=== PATIENT | female | born 1960 | race Caucasian/White ===

== ENCOUNTER 2018-07-27 08:14 | Day surgery (SDC) | payer BC ==
[~2018-07-27 08:14] MED LIST: Acetaminophen TAB* 325 MG PO ONE; Buffered Lidocaine 1% SYRIN* 1 ML/SYRINGE INTRADERM ONE; Dexamethasone IV* 4 MG/ML 1 ML (4 MG) IV SLOW PU ONE; Famotidine IV* 10 MG/ML 2 ML (20 mg) IV SLOW PU ONE; Gabapentin CAP(*) 300 MG PO ONE; Lactated Ringers 1000 ML Bag* 1,000 ML IV SCH
[2018-07-27] MEDS ORDERED: Dexamethasone IV* 4 MG/ML 1 ML (4 MG) ONE (08:38)
[2018-07-27] MEDS ORDERED: Gabapentin CAP(*) 300 MG ONE (08:38)
[2018-07-27] MEDS ORDERED: Acetaminophen TAB* 325 MG ONE (08:39)
[2018-07-27] MEDS ORDERED: Famotidine IV* 10 MG/ML 2 ML (20 mg) ONE (08:39)
[2018-07-27] MEDS ORDERED: Clindamycin 900 MG/D5W BAG(*) 900 MG/50 ML BAG IVPB ONE (08:39)
[2018-07-27] MEDS ORDERED: Buffered Lidocaine 1% SYRIN* 1 ML/SYRINGE INTRADERM ONE (08:39)
[2018-07-27] MEDS ORDERED: Ondansetron INJ* 2 MG/ML VIAL ONE (09:09)
[2018-07-27] MEDS ORDERED: fentaNYL* 50 MCG/ML 2 ML VIAL (100 MCG VIAL) ONE ×2 (09:09→10:17)
[2018-07-27] MEDS ORDERED: Propofol* 10 MG/ML 20 ML BTL ONE ×2 (09:09→10:24)
[2018-07-27] MEDS ORDERED: Midazolam* 1 MG/ML 5 ML VIAL (5 MG) ONE (09:09)
[2018-07-27] MEDS ORDERED: Ketorolac INJ* 30 MG/ML 1 ML VIAL ONE (09:09)
[2018-07-27] MEDS ORDERED: Lidocaine 2% PF * 5 ML VIAL ONE (09:57)
[2018-07-27] MEDS ORDERED: Bupivacaine 0.25% SDV PF* 10 ML VIAL INJ ONE (10:19)
[2018-07-27] MEDS ORDERED: KETAMINE HCL* 50 MG/ML 10 ML VIAL ONE (10:19)
[2018-07-27] MEDS ORDERED: Naloxone* 0.4 MG/ML 1 ML VIAL IV PRN (10:31)
[2018-07-27] MEDS ORDERED: HYDROmorphone INJ1* 1 MG/ML SYRINGE IV PRN (10:31)
[2018-07-27] MEDS ORDERED: Ondansetron INJ* 2 MG/ML VIAL IV PRN (10:31)
[2018-07-27] MEDS ORDERED: oxyCODONE/Acetamin 5/325 MG* TAB PO PRN (10:31)
[2018-07-27] MEDS ORDERED: DiMENhydriNATE IV* 50 MG/ML VIAL IV PUSH PRN (10:31)
[2018-07-27] MEDS ORDERED: fentaNYL* 50 MCG/ML 2 ML VIAL (100 MCG VIAL) IV PRN (10:31)
[2018-07-27 12:00] VITALS: BP 120/69
[2018-07-27] MEDS ORDERED: oxyCODONE/Acetamin 5/325 MG* TAB ONE (12:02)
--- NOTE | 2018-07-27 14:46 | OP ---
Operative Report - Blank - Operative Report Date of Operation: 07/27/18 Note: PATIENT: Xiomara Lopez DATE OF : 1960 DATE OF SURGERY: 07/27/2018 SURGEON: Antoine Pena MD [employer] ST[employer]ER: JOSELINE Franco, whos assistance was necessary for positioning, retraction, help with instrumentation, and closure. ANESTHESIOLOGIST: Dr. Alexander PREOPERATIVE DIAGNOSIS: Left foot hallux valgus deformity and 2nd hammertoe POSTOPERATIVE DIAGNOSIS: Left foot hallux valgus deformity and 2nd hammertoe OPERATION: 1. Left foot hallux valgus correction with distal soft tissue procedure, medial eminence resection, and proximal suture button fixation. 2. Left 2nd hammertoe correction with PIP resection arthroplasty ANESTHESIA: MAC IMPLANTS: Arthrex mini tightrope. TOURNIQUET TIME: Less than one hour with a well-padded thigh tourniquet at 250mmHg SPECIMENS: None ESTIMATED BLOOD LOSS: Minimal COMPLICATIONS: none STATUS: Stable from the operating room to the recovery room and then home. INDICATIONS FOR PROCEDURE: Xiomara has had persistently painful bunion and hammertoe. Both operative and non -operative treatment alternatives were reviewed. Further, the nature and risks of surgery were reviewed in careful detail, in the office as well as the pre- operative holding area. Our discussions regarding the risks of surgery included , but were not limited to, infection, wound problems, nerve injury, neuroma, RSD , persistent symptoms, blood clot, recurrence of the hallux valgus deformity, hallux varus deformity, imperfect reduction, metatarsal fracture, recurrent hammertoe, floating toe, need for further surgery, failure of the surgery, and even the remote chance of catastrophic complication, including loss of toe or limb. DESCRIPTION OF PROCEDURE: The patient was seen in the preoperative holding unit and informed written consent was obtained. The appropriate extremity was marked. The patient was then brought to the operating room and carefully positioned on the operating room table. Anesthesia was induced. All bony prominences were padded with great care. A chlorhexidine based pre-scrub was performed followed by a chloraprep prep and drape in standard sterile fashion. A surgical safety pause was then conducted in which we confirmed the appropriate patient, extremity, planned procedure, availability of equipment, indication and administration of prophylactic antibiotics, and DVT prophylaxis in the form of a compression boot on the non-surgical extremity. I began with Esmarch exsanguination of the limb and inflation of the tourniquet. An approximately 3cm longitudinal dorsal incision was made in the first webspace. Blunt dissection was utilized to expose the structures of the lateral first MTP joint. With a scalpel I then sharply released the adductor tendon, intermetatarsal ligament, metatarsal-sesamoid ligament, and lateral joint capsule. After this, the hallux came readily over into varus with minimal pressure. I then made an approximately 3cm longitudinal incision over the medial aspect of the first MTP joint, centered at the first MTP joint. Dissection was carried down to the capsular layer. The dorsomedial cutaneous nerve was protected throughout. The capsule was opened in line with the skin incision. I then used an oscillating saw to perform an exostectomy of the medial eminence of the first MTP head flush with the metaphyseal flare proximally. I started the osteotomy 1mm medial to the sagittal sulcus. The dorsomedial prominence was then contoured with a rongeur. I then simulated an imbrication of the capsule, which provided excellent visual correction of the hallux valgus deformity and intermetatarsal angle. I used fluoroscopy to confirm this and that the sesamoids were appropriately positioned under the first metatarsal head. As such, I then formally imbricated and repaired the medial first MTP joint capsule utilizing several advancing horizontal mattress sutures with #1 Vicryl. I then made an approximately 1 cm incision at the lateral border of the second metatarsal. The lateral cortex of the second metatarsal was exposed. The 1.1mm guidewire from the Arthrex mini tightrope set was passed from the lateral second metatarsal, through the second metatarsal, and through the first metatarsal to exit medially. I felt four cortices while advancing the guidewire. Then, by pulling the guidewire out medially, I shuttled a passing suture through the second and first metatarsals. I then looped the suture of the Arthrex mini tightrope through the passing suture and pulled this out laterally through the second metatarsal. This acted to shuttle the mini tightrope through the first and second metatarsals. The buttons were placed flush on the medial aspect of the first metatarsal and lateral aspect of the second metatarsal, and the suture was tied over the button laterally at the second metatarsal. Fluoroscopy was used to confirm that this maintained my intermetatarsal correction. An incision was made over the left 2nd toe PIP joint and taken down to the level of bone and joint. The collateral ligaments were released on both sides. I then used a small oscillating saw to osteotomize the distal aspect of the proximal phalanx. This was then excised. I then placed a 0.045 K wire through the toe in an antegrade/retrograde fashion. The resection and pin placement was then confirmed with fluoroscopy. The toe sat nice and straight clinically. There was no extension deformity appreciated at the MTP joint, so I decided not to perform a joint release and extensor tendon lengthening. Final fluoroscopic images were then obtained. The wounds were copiously irrigated and meticulously closed in layers utilizing 3-0 Monocryl and 3-0 nylon. A sterile dressing was then applied, along with a bunion bolster. The patient was then awakened from anesthesia and transferred to the recovery room in stable condition. There were no complications. All needle and sponge counts were correct at the end of the case. ATTESTATION: I attest I was present and scrubbed and performed the critical portions of the procedure myself. POSTOPERATIVE PLAN: The patient will remain heel weightbearing in a postop shoe for anticipated duration of 6 weeks. Followup will be in 2 weeks for likely suture removal, Steri-Strip application, and reapplication of the bunion bolster.
== END 2018-07-27 12:14 | disposition home or self-care (01) ==
LOC: OR 08:14
PROVIDERS: ATTEND Orthopaedic Surgery
DX: M20.12 Hallux valgus (acquired), left foot (principal); M20.42 Other hammer toe(s) (acquired), left foot; I10 Essential (primary) hypertension; Z87.891 Personal history of nicotine dependence; E03.9 Hypothyroidism, unspecified; M10.9 Gout, unspecified
CPT/HCPCS: 76000; A9270-GY; C1713; J1100; J1885; J2250; J2405; J2704; J3010; J3490